=== PATIENT | female | born 1985 | race Caucasian/White ===

== ENCOUNTER 2018-10-09 15:17 | Outpatient (REF) | payer MEDICAID, SELFPAY ==
[2018-10-09 22:05] LABS: HCT 43.8 % (36.0-46.0); HGB 14.4 g/dL (12.0-15.5); Mean Corp. HGB Concentration 32.9 g/dL (32.0-36.0); Mean Corpuscular Hemoglobin 28.7 pg (27.0-33.0); Mean Corpuscular Volume 87.4 fL (80-95); Mean Platelet Volume 10.8 fL (8.0-11.0); Platelet Count 249 x1000/uL (130-400); RBC 5.01 m/cumm (4.00-5.20); RBC Distribution Width 12.6 % (11.7-14.6); White Blood Cell Count 6.54 k/cumm (4.4-10.8)
[2018-10-09 22:20] LABS: BUN 11 mg/dL (7-18); CREATININE 0.97 mg/dL (0.55-1.02); Calcium 9.4 mg/dL (8.5-10.1); Chloride 104 mmol/L (98-107); Glucose 81 mg/dL (70-100); Sodium 141 mmol/L (136-145)
== END 2018-10-09 15:37 ==
LOC: NCHCN 15:17
PROVIDERS: PCP Family Medicine; Visit Provider Nurse Practitioner Family
DX: R53.83 Other fatigue (principal); R63.5 Abnormal weight gain; R25.2 Cramp and spasm
CPT/HCPCS: 80048; 85027; 84443